=== PATIENT | male | born 1965 | race Caucasian/White ===

== ENCOUNTER 2020-07-26 10:48 | Outpatient (REF) | payer BC, SELFPAY | END 2020-07-26 10:49 | disposition home or self-care (01) | LOC: HO.WFDLDS 10:48 | PROVIDERS: PCP Internal Medicine; Visit Provider Internal Medicine | DX: Z20.822 Contact with and (suspected) exposure to COVID-19 (principal) | CPT/HCPCS: 36415; C9803; U0003 ==